=== PATIENT | male | born 1960 | race Caucasian/White ===

== ENCOUNTER 2021-04-03 10:32 | Emergency (ER) | payer OTHER ==
[~2021-04-03] VITALS: Ht 185.4 cm; Wt 96.2 kg
--- NOTE | 2021-04-03 10:42 | NUR ---
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 GAIT SLOW AND STEADY.
[2021-04-03] MEDS ORDERED: DEXAMETHASONE 4 MG/ML, 1ML ONE (11:08)
[2021-04-03] MEDS ORDERED: DIAZEPAM 5 MG/ML, 2ML ONE (11:08)
--- NOTE | 2021-04-03 11:21 | NUR ---
PT HAS CO BACK MUSCLE SPASMS. PAINFUL AND TIGHT WHEN CHANGING POSITIONS. BOTH SIDES OF LOWER BACK. STARTED WEDNESDAY AND WORSENED. IV, MEDICATED, LABS DRAWN
[2021-04-03] MEDS ORDERED: DEXAMETHASONE 4 MG/ML, 1ML IVPush ONE (11:30)
[2021-04-03] MEDS ORDERED: DIAZEPAM 5 MG/ML, 2ML IV ONE (11:30)
[2021-04-03] MEDS ORDERED: SODIUM CHLORIDE FLUSH 10ML SYR IVF ONE (11:30)
[2021-04-03 11:35] LABS: BASOPHILS % (AUTO) 1 % (0-1); EOSINOPHILS % (AUTO) 2 % (1-7); LYMPHOCYTES % (AUTO) 25 % (22-44); MEAN CORPUSCULAR HEMOGLOBIN 36.3 pg (27.5-34.5); MEAN CORPUSCULAR HGB CONC 35.4 g/dL (33.2-36.2); MEAN PLATELET VOLUME 9.4 fL (7.4-10.4); MONOCYTES % (AUTO) 7 % (2-9); NEUTROPHILS % (AUTO) 65 % (42-75); PLATELET COUNT 59 x10^3/uL (130-400); RED BLOOD COUNT 4.54 x10^6/uL (4.38-5.82)
[2021-04-03 11:37] LABS: ALANINE AMINOTRANSFERASE 168 U/L (12-78); ALBUMIN 3.3 g/dL (3.4-5.0); ANION GAP 7 mmol/L (5-15); CALCIUM 9.1 mg/dL (8.5-10.1); CHLORIDE 110 mmol/L (98-107); CREATININE 0.93 mg/dL (0.7-1.3)
[2021-04-03 11:39] LABS: ALKALINE PHOSPHATASE 93 U/L (45-117); BILIRUBIN,TOTAL 1.9 mg/dL (0.2-1.0); TOTAL PROTEIN 8.2 g/dL (6.4-8.2)
--- NOTE | 2021-04-03 11:57 | NUR ---
PT ABLE TO MOVE AROUND W OUT SO MUCH PAIN. SPASMS BETTER
[2021-04-03 12:25] LABS: MICROSCOPIC INDICATED
--- NOTE | 2021-04-03 12:54 | NUR ---
US AT BEDSIDE.
[2021-04-03] MEDS ORDERED: KETOROLAC 30 MG/1 ML ONE (13:16)
[2021-04-03] MEDS ORDERED: MORPHINE SULFATE 4 MG/ML, 1ML ONE (13:16)
[2021-04-03] MEDS ORDERED: MORPHINE SULFATE 4 MG/ML, 1ML IVPush PRN (13:30)
[2021-04-03] MEDS ORDERED: KETOROLAC 30 MG/1 ML IVPush ONE (13:30)
[2021-04-03] MEDS ORDERED: ONDANSETRON 2MG/ML, 2ML IVPush ONE (13:30)
[2021-04-03 13:48] VITALS: BP 151/85
--- NOTE | 2021-04-03 13:51 | NUR ---
MEDICATED PER ORDERS, AT BEDSIDE. TO BE DC
== END 2021-04-03 14:20 | disposition home or self-care (01) ==
LOC: ED 11:43
DX: S29.011A Strain of muscle and tendon of front wall of thorax, initial encounter (principal); K70.10 Alcoholic hepatitis without ascites; R94.31 Abnormal electrocardiogram [ECG] [EKG]; X58.XXXA Exposure to other specified factors, initial encounter; Y93.89 Activity, other specified; Y92.89 Other specified places as the place of occurrence of the external cause; Y99.8 Other external cause status
CPT/HCPCS: 36415; 76700; 80053; 81001; 83690; 85025; 93005; 96374; 96375; 99285; J1100; J1885; J2270; J3360